=== PATIENT | male | born 1995 | race Two or more races ===

== ENCOUNTER 2018-05-29 22:30 | Emergency (ER) | payer SELFPAY ==
[~2018-05-29] VITALS: Ht 185.4 cm; Wt 146.6 kg
[2018-05-29] MEDS ORDERED: IBUPROFEN 600 MG TABLET ONE (22:52)
[2018-05-29] MEDS ORDERED: IBUPROFEN 600 MG TABLET PO ONE (23:00)
[2018-05-29 23:45] VITALS: BP 139/81
== END 2018-05-29 23:48 | disposition home or self-care (01) ==
LOC: ED 23:45
DX: S66.811A Strain of other specified muscles, fascia and tendons at wrist and hand level, right hand, initial encounter (principal); F17.200 Nicotine dependence, unspecified, uncomplicated; V49.88XA Car occupant (driver) (passenger) injured in other specified transport accidents, initial encounter; Y93.89 Activity, other specified; Y92.89 Other specified places as the place of occurrence of the external cause; Y99.8 Other external cause status
CPT/HCPCS: 99283